=== PATIENT | female | born 1940 | race Caucasian/White ===

== ENCOUNTER 2019-02-27 13:50 | Observation (INO) ==
[2019-02-27] MEDS ORDERED: ASPIRIN PO ONE (14:03)
--- NOTE | 2019-02-27 14:32 | Diag Imaging Result Doc PS360 ---
CHEST-2 VIEWS - 02/27/2019 INDICATION: shortness of breath COMPARISON: None FINDINGS: The lungs are normally expanded and clear. Heart size and mediastinal contours are normal. No pneumothorax or pleural effusion. IMPRESSION: Negative exam. Electronically signed by Raz Gentile 02/27/2019 2:29 PM
--- NOTE | 2019-02-27 14:44 | EKG Report ---
Test Performed on : 02/27/2019 2:16:52 PM Test Reason : shortness of breath Blood Pressure : / mmHG Vent. Rate : 057 BPM Atrial Rate : 057 BPM P-R Int : 134 ms QRS Dur : 084 ms QT Int : 440 ms P-R-T Axes : 034 013 055 degrees QTc Int : 428 ms Sinus bradycardia. Otherwise normal ECG No previous ECGs available Unconfirmed Result
[2019-02-27 15:02] LABS: BASO# 0.03 X1000 (0.0-0.2); BASO% 0.4 % (0.0-0.8); EOS# 0.02 X1000 (0.0-0.7); EOS% 0.3 % (0.0-10.0); HEMATOCRIT 38.8 % (37.0-47.0); HEMOGLOBIN 13.5 g/dL (12.0-16.0); LYMPH# 1.61 X1000 (1.2-3.4); LYMPH% 22.4 % (20.5-51.1); MCH 30.7 PG (27-31); MCHC 34.8 g/dL (33-37); MCV 88.2 FL (81-99); MONO# 0.55 X1000 (0.11-0.59); MONO% 7.7 % (1.7-9.3); MPV 11.4 FL (7.4-10.4); NEUT# 4.97 X1000 (1.4-6.5); NEUT% 69.2 % (42.2-75.2); PLT 236 X1000 (130-400); RDW 12.5 % (11.5-14.5); WBC 7.18 X1000 (4.8-10.8)
[2019-02-27 15:08] LABS: INR 0.91
[2019-02-27 15:09] LABS: PTT 35.7 Seconds (22.3-41.8)
[2019-02-27 15:30] LABS: AGAP 13; ALB/GLOB RATIO 2.1; ALBUMIN 4.5 g/dL (3.5-5.0); ALKALINE PHOSPHATASE 117 U/L (32-104); BUN 14 mg/dL (8-22); CALCIUM 10.1 mg/dL (8.8-10.2); CHLORIDE 94 mmol/L (98-107); CK PROFILE 41 U/L (24-173); COSMO 266; CREATININE 0.8 mg/dL (0.5-0.9); ESTIMATED GFR > 60; GLUCOSE 110 mg/dL (70-104); GOT 16 U/L (10-30); GPT 15 U/L (10-36); POTASSIUM 3.6 mmol/L (3.5-5.1); SODIUM 132 mmol/L (136-145); TCO2 25 mmol/L (25-35); TOTAL BILIRUBIN 0.35 mg/dL (0.20-1.00); TOTAL PROTEIN 6.6 g/dL (6.3-8.3)
--- NOTE | 2019-02-27 17:40 | PROVIDER DOCUMENTATION ---
This chart was entered by Lia Rucker Scribe, acting as scribe for Blaire Blevins MD. HPI-Respiratory General - General Chief Complaint: Shortness of Breath Stated Complaint: CHEST TIGHTNESS Time Seen by Provider: 02/27/19 15:03 Source: patient Allergies/Adverse Reactions: Patient Allergies Allergy/AdvReac Type Severity Reaction Status Date / Time No Known Allergies Allergy Verified 02/27/19 15:49 Home Medications: Home Medication List Medication Instructions Recorded Confirmed Last Taken Type Alprazolam 1 mg PO QHS 02/27/19 02/27/19 02/26/19 History Aspirin 325 mg PO DAILY 02/27/19 02/27/19 02/27/19 History Bisoprolol Fumarate/Hctz [Ziac 1 tab PO BID 02/27/19 02/27/19 02/27/19 History 10-6.25 mg Tablet] - History of Present Illness-Resp Nature of Presenting Problem: Patient is a 78 year old female who presents with shortness of breath and chest tightness that started yesterday. States having lightheadedness. Denies history of CAD. Quality of Pain: reports: tightness Severity in ED: reports: mild Onset/Duration: reports: 24 hours ago Timing: reports: still present Cough Quality/Degree: reports: no cough Modifying Factors: improves with: lying down, rest. worse with: other (movement) Associated Symptoms: reports: chest pain/soreness (chest tightness), lightheadedness, shortness of breath Similar Symptoms Previously?: Yes Recently seen or treated by another doctor?: No Review of Systems - Adult - REVIEW OF SYSTEMS - ADULT Constitutional: reports: no symptoms reported. denies: chills, fever, fatique Eyes: reports: no symptoms reported Ears, Nose, Mouth & Throat: reports: no symptoms reported Cardiovascular: reports: no symptoms reported Respiratory: reports: see HPI, shortness of breath. denies: cough, wheezing Gastrointestinal: reports: no symptoms reported Genitourinary: reports: no symptoms reported Musculoskeletal: reports: no symptoms reported Integumentary: reports: no symptoms reported Neurological: reports: see HPI, other (lightheadedness). denies: dizziness/vertigo, headache/migraines, syncope Psychiatric: reports: no symptoms reported Endocrine: reports: no symptoms reported Hematologic/Lymphatic: reports: no symptoms reported Allergic/Immunologic: reports: no symptoms reported All Other Systems: Reviewed and Negative Past History - Adult - PAST MEDICAL HISTORY-ADULT Review of Records: reports: Old Records Reviewed, Nursing Assessment Review, Medications Reviewed, Social history reviewed & non-contributory. Major Childhood Illnesses: reports: denies history Cardiovascular: reports: HTN Respiratory: reports: denies history Gastrointestinal: reports: denies history Obstetrical/Gynecological: reports: denies history Genitourinary: reports: denies history Musculoskeletal: reports: denies history Neurological: reports: denies history Psychiatric: reports: anxiety Endocrine/Immune: reports: denies history Other Conditions: reports: denies history - PRIOR SURGERIES/PROCEDURES Surgical/Procedure History: reports: reviewed, not pertinent, BTL - IMMUNIZATION STATUS Childhood Immunizations: See Nurse Assessment Flu Vaccine: See Nurse Assessment - FAMILY HISTORY Family History: reviewed, not pertinent - SOCIAL HISTORY Smoking: cigarettes (former) Substance Use: denies Physical Exam-General - PHYSICAL EXAM-ADULT Initial Vital Signs Reviewed: Yes - CONSTITUTIONAL General Appearance: alert, no apparent distress. negative: lethargic, slow to respond - RESPIRATORY Respiratory: chest non-tender, lungs clear, normal breath sounds. negative: crackles, rhonchi, stridor - CARDIOVASCULAR Cardiovascular: normal peripheral pulses, regular rate, rhythm. negative: tachycardia, systolic murmur - GASTROINTESTINAL (ABDOMEN) Abdominal Exam: normal bowel sounds, non tender, soft. negative: guarding, rebound - MUSCULOSKELETAL Extremity: non-tender, normal inspection. negative: deformity, erythema - SKIN Integumentary: normal color, normal turgor, warm/dry. negative: cyanosis, erythema, jaundice, rash - NEUROLOGIC Neurologic: grossly normal. negative: aphasia, facial droop - PSYCHIATRIC Psych/Mental Status: normal mood/affect, oriented x 3. negative: anxious - HEART Score HEART Score: History: Moderately Suspicious HEART Score: ECG: Non-Specific Repolarization Disturbance/LBBB/PM HEART Score: Age: > or = 65 Years HEART Score: Risk Factors for Atherosclerotic Disease: 1 or 2 Risk Factors HEART Score: Troponin: < or = Normal Limit Total HEART Score:: 5 Progress - PLAN OF CARE/RESULTS Progress/Plan/Lab Results: Vital Signs - 8 hr 02/27/19 13:54 Temperature 97.9 F Pulse Rate 61 Respiratory Rate 18 Blood Pressure 196/79 O2 Sat by Pulse Oximetry 98 Laboratory Results - last 24 hr 02/27/19 02/27/19 02/27/19 14:11 14:11 14:11 WBC 7.18 RBC 4.40 Hgb 13.5 Hct 38.8 MCV 88.2 MCH 30.7 MCHC 34.8 RDW Std Deviation 12.5 Plt Count 236 MPV 11.4 H Immature Gran % (Auto) 0.0 Neut % (Auto) 69.2 Lymph % (Auto) 22.4 Hall % (Auto) 7.7 Eos % (Auto) 0.3 Baso % (Auto) 0.4 Immature Gran # (Auto) 0.00 Neut # (Auto) 4.97 Lymph # (Auto) 1.61 Hall # (Auto) 0.55 Eos # (Auto) 0.02 Baso # (Auto) 0.03 PT INR PTT (Actin FS) Sodium 132 L Potassium 3.6 Chloride 94 L Carbon Dioxide 25 Anion Gap 13 BUN 14 Creatinine 0.8 Estimated GFR/1.73 m2 > 60 BUN/Creatinine Ratio 18 Glucose 110 H Calculated Osmolality 266 Calcium 10.1 Total Bilirubin 0.35 AST 16 ALT 15 Alkaline Phosphatase 117 H Creatine Kinase 41 Troponin T Ukk-L-Ejnizuvnmws Pept 251 Total Protein 6.6 Albumin 4.5 Globulin 2.1 Albumin/Globulin Ratio 2.1 02/27/19 02/27/19 14:11 14:11 WBC RBC Hgb Hct MCV MCH MCHC RDW Std Deviation Plt Count MPV Immature Gran % (Auto) Neut % (Auto) Lymph % (Auto) Hall % (Auto) Eos % (Auto) Baso % (Auto) Immature Gran # (Auto) Neut # (Auto) Lymph # (Auto) Hall # (Auto) Eos # (Auto) Baso # (Auto) PT 13.0 INR 0.91 PTT (Actin FS) 35.7 Sodium Potassium Chloride Carbon Dioxide Anion Gap BUN Creatinine Estimated GFR/1.73 m2 BUN/Creatinine Ratio Glucose Calculated Osmolality Calcium Total Bilirubin AST ALT Alkaline Phosphatase Creatine Kinase Troponin T < 0.010 Glr-Q-Hbnnayjnakk Pept Total Protein Albumin Globulin Albumin/Globulin Ratio Orders Category Date Time Status Admit - [facility] Routine AdmDCTranf 02/27/19 16:50 Active Activity - Up Ad Jodee ORDERED Care 02/27/19 16:50 Active Cardiac Monitoring DIRECTED Care 02/27/19 14:03 Active Oxygen Therapy- ED Nursing DIRECTED Care 02/27/19 14:03 Active Saline Loc NOW Care 02/27/19 14:03 Active Vital Signs Order Q 8-HR .ASSESS Care 02/27/19 16:50 Active Z-Document. for Tele Applied ORDERED Care 02/27/19 16:51 Active CHEST-2 VIEWS [RAD] Stat Exams 02/27/19 14:03 Completed CBC WITH ELECTRONIC DIFF [HEME] Stat Lab 02/27/19 14:11 Completed CK PROFILE [SP CHEM] Stat Lab 02/27/19 14:11 Completed CK PROFILE [SP CHEM] Stat Lab 02/27/19 16:51 Uncollected COMPREHENSIVE METABOLIC PANEL [CHEM] Stat Lab 02/27/19 14:11 Completed PRO B-NATRIURETIC PEPTIDE Stat Lab 02/27/19 14:11 Completed PROTIME WITH INR [COAG] Stat Lab 02/27/19 14:11 Completed PTT [COAG] Stat Lab 02/27/19 14:11 Completed TROPONIN T Stat Lab 02/27/19 14:11 Completed TROPONIN T Stat Lab 02/27/19 16:51 Uncollected Aspirin Med 02/27/19 14:03 Discontinued 325 mg PO NOW ONE CP/SOB/Palp >45 yrs of Age Stat Oth 02/27/19 14:03 Ordered Telemetry [OM.EQ] Routine Oth 02/27/19 16:50 Active EKG [EKG] Stat Ther 02/27/19 14:16 Draft Transfer/Admit Order [TRANSFER] Routine Transfer 02/27/19 16:52 Ordered Result Diagrams: 02/27/19 14:11 02/27/19 14:11 - EKG 1 Time of EKG reading by physician:: 14:16 EKG Read and Signed by:: Ignacio Sosa EKG Interpretation (*Must complete 3 of following elements*): Abnormal Rate: 57 Rhythm: sinus bradycardia [place]: normal ID Interval: normal Comments: otherwise normal ECG - XRAY 1 XRAY Study: Chest Impression: See EMR Report ( CHEST-2 VIEWS - 02/27/2019 INDICATION: shortness of breath COMPARISON: None FINDINGS: The lungs are normally expanded and clear. Heart size and mediastinal contours are normal. No pneumothorax or pleural effusion. IMPRESSION: Negative exam. Electronically signed by Raz Gentile 02/27/2019 2:29 PM 02/27/19 1429 Interpreting Physician: Raz Gentile MD Dictated Date/Time: 02/27/19 1429 cc: Ignacio Sosa; Boni Lindsay MD) - CONSULTS/PCP/HOSPITALIST Notification #1 *Consult/PCP/Hospitalist*: Dr. Guerrero Time Discussed: 17:39 Consult Disposition: Admit Departure - Departure Date of Disposition Decision: 02/27/19 Time of Disposition Decision: 17:40 DIAGNOSIS: ACS (acute coronary syndrome), Sinus bradycardia Disposition: ADMITTED INPATIENT 09 Certified Medical Emergency: Emergent Condition: Stable Referrals and Follow-Ups: Boni Lindsay MD [Primary Care Provider] - - Critical Care Note This patient required my direct & personal management of CC.: No Attestation - Physician/ JESSICA Attestation The physician spent face to face time with patient:: Yes Advanced Practice Provider documentation review:: Supervising physician onsite and consulted in the evaluation and care of this patient. The physician did have a face to face encounter with the patient. This chart was documented by the indicated scribe, (Lia Rucker Scribe) and accurately reflects the services I performed and decisions made by me, Blaire Blevins MD, as attested by the provider's signature.
[2019-02-27] MEDS ORDERED: KLOR-CON PO ONE (18:53)
[2019-02-27] MEDS ORDERED: XANAX PO SCH (21:00)
--- NOTE | 2019-02-27 21:09 | HISTORY AND PHYSICAL ---
CHIEF COMPLAINT: Chest pain. HISTORY OF PRESENT ILLNESS: Ms. Manriquez is a 78-year-old white female, patient of Dr. Mayer, complaining of chest pain. Patient described pain as a tightness with shortness of breath that started yesterday. Patient had more problem with exertion. With rest, she was feeling better. Today, she went to Urgent Care in [place]. Patient was given aspirin. They did EKG and patient was sent to emergency room. Patient does have hypertension. Patient is on Ziac 10 one tablet twice a day. Patient claims her exercise tolerance seems to be decreasing. No radiation of chest tightness to the arm. She did have shortness of breath. No associated sweating. Patient does not know her lipid result, not aware of being diabetic. Patient is menopausal. No leg swelling. Patient evaluated in the ER. Because of her character of the chest pain, risk factors, we decided to admit patient for observation. Patient denied any abdominal pain, nausea, vomiting. No heartburn, no dysphagia or odynophagia. No unusual cough, expectoration, or hemoptysis. Patient was getting short of breath with exertion. No leg swelling. No arthritic pain in the joint. No joint swelling or redness. Denied being depressed. No runny nose, stuffy nose, sinus drainage. Denied any headache. No heat or cold intolerance. At times, polyuria, polydipsia. No further history available at this time. ALLERGIES: No known drug allergy. MEDICATIONS: 1. Ziac 10 mg p.o. b.i.d. 2. Xanax 1 mg p.o. at bedtime for sleep. FAMILY HISTORY: Father at 77; had melanoma. Father did have history of [place]. One sister with hypothyroidism and fibromyalgia. Another sister with Sjogren syndrome and rib fracture. Patient had a sister with ulcerative colitis and surgeries, who at age 81. REVIEW OF SYSTEMS: As per HPI, otherwise unobtainable. Patient denied being depressed. No major weight loss or weight gain. No heat or cold intolerance. No focal numbness, tingling, weakness. PHYSICAL EXAMINATION: GENERAL: Elderly white female patient in no acute distress. VITAL SIGNS: Blood pressure 196/79, pulse 61, respiration 18, temperature 97.9 degrees. HEAD: Atraumatic, normocephalic. EYES: [place] conjunctivae. Anicteric sclerae. Extraocular muscle movements normal. Fundus cannot be penetrated. ENT: Good oral hygiene. No tonsillopharyngeal congestion or exudate. Ears and nose benign. NECK: Supple. No JVD, thyromegaly or lymphadenopathy. CHEST: Bilateral good air entry present. No rales or rhonchi. CARDIOVASCULAR: S1 and S2 heard. No gallop or thrill. ABDOMEN: Soft. No distention. Bowel sounds present. No organomegaly or mass. EXTREMITIES: No cyanosis, clubbing. No acute DVT. Peripheral pulsation intact. DAIRY EQUIPMENT SPECIALIST: Alert, awake. Able to move all 4 limbs. LABORATORY DATA: WBC count 7.18, hemoglobin 13.5, hematocrit 38.8, platelet count 236,000. PT/INR 0.91, PTT 35.7, sodium 132, potassium 3.6. Blood sugar 110. CONSIDERATIONS: 1. Chest pain, which she described as a tightness. Patient does have risk factors for coronary artery disease. 2. Hypertension, bradycardia, mild hyponatremia, insomnia. Patient electrocardiogram noted. PLAN: 1. Admit patient for observation. 2. Serial EKGs, cardiac isoenzymes. 3. Echocardiogram. 4. Check appropriate labs. 5. Risk factor stratification. 6. After reviewing labs, will make necessary recommendations. 7. Overall plan discussed with the patient, and she is in agreement. cc: Kendrick Hagen MD
[2019-02-27] MEDS: LOVENOX SUBQ SCH (21:34)
[2019-02-27] MEDS: PRINIVIL PO SCH (21:37)
[2019-02-28 07:33] LABS: BASO# 0.02 X1000 (0.0-0.2); BASO% 0.4 % (0.0-0.8); EOS# 0.06 X1000 (0.0-0.7); EOS% 1.3 % (0.0-10.0); HEMATOCRIT 37.2 % (37.0-47.0); HEMOGLOBIN 12.7 g/dL (12.0-16.0); LYMPH# 1.76 X1000 (1.2-3.4); LYMPH% 37.5 % (20.5-51.1); MCH 30.6 PG (27-31); MCHC 34.1 g/dL (33-37); MCV 89.6 FL (81-99); MONO# 0.55 X1000 (0.11-0.59); MONO% 11.7 % (1.7-9.3); MPV 11.1 FL (7.4-10.4); NEUT% 49.1 % (42.2-75.2); PLT 210 X1000 (130-400); RBC 4.15 XMIL (4.2-5.4); RDW 12.6 % (11.5-14.5); WBC 4.69 X1000 (4.8-10.8)
[2019-02-28 07:52] LABS: AGAP 9; ALB/GLOB RATIO 1.9; ALKALINE PHOSPHATASE 99 U/L (32-104); BUN 11 mg/dL (8-22); CALCIUM 8.7 mg/dL (8.8-10.2); CHLORIDE 100 mmol/L (98-107); CHOLESTEROL 226 mg/dL (0-200); COSMO 271; CREATININE 0.7 mg/dL (0.5-0.9); ESTIMATED GFR > 60; GLUCOSE 95 mg/dL (70-104); GOT 17 U/L (10-30); GPT 13 U/L (10-36); HDL 47 mg/dL (45-65); LDL 157 mg/dL; MAGNESIUM 2.2 mg/dL (1.5-2.7); SODIUM 136 mmol/L (136-145); TCO2 27 mmol/L (25-35); TOTAL BILIRUBIN 0.44 mg/dL (0.20-1.00); TOTAL PROTEIN 6.1 g/dL (6.3-8.3); TRIGLYCERIDES 108 mg/dL (35-135); VLDL 22 mg/dL
[2019-02-28 08:00] LABS: HEMOGLOBIN A1C 4.9 % (4.8-6.0)
[2019-02-28 08:18] LABS: FREE T4 1.2 ng/dL (0.93-1.70); TSH 3.43 uIUmL (0.27-4.20)
[2019-02-28] MEDS ORDERED: ASPIRIN PO SCH (09:00)
[2019-02-28] MEDS: LOVENOX SUBQ SCH (09:26)
[2019-02-28] MEDS: PRINIVIL PO SCH (09:27)
[2019-02-28] MEDS: ZIAC 10/6.25 MG PO SCH ×2 (09:29→09:30)
[2019-02-28 11:35] VITALS: BP 147/54
--- NOTE | 2019-02-28 15:15 | ECHO REPORT ---
ORDER DATE: 02/27/2019 ECHOCARDIOGRAPHIC MEASUREMENTS: 1. Interventricular septum 0.9. 2. Left ventricular posterior wall 0.9. 3. Diastolic diameter 4.3. 4. Left atrium 3.7. 5. Aorta 3.8. SUMMARY: 1. Pulmonic valve was normal. There is trace pulmonary regurgitation. 2. Aortic valve leaflets are trileaflet. 3. Mitral valve was normal. 4. Tricuspid valve was normal. 5. There is mild mitral regurgitation. 6. Mild tricuspid regurgitation. 7. Peak velocity across the tricuspid valve was 2.4 m/sec. 8. Pulmonary artery systolic pressure of 33 mmHg. 9. Peak velocity across the aortic valve less than 2 m/sec. 10. By Doppler studies there is no aortic stenosis or regurgitation. 11. Normal left ventricular cavity size. 12. Estimated ejection fraction of 60 to 65 percent. 13. There is no pericardial effusion or obvious intracardiac mass or thrombus seen. cc: MD Kendrick Marcum MD
--- NOTE | 2019-02-28 19:07 | DISCHARGE SUMMARY ---
ADMISSION DATE: 02/27/2019 DISCHARGE DATE: 02/28/2019 FINAL DISCHARGE DIAGNOSIS: 1. Chest pain. 2. Hypertension. 3. Hyperlipidemia. Ms Manriquez 78-year-old white female patient admitted with chest tightness more so with exertion. Since admission patient is doing better. She denied any fever, chills. No palpitation. No nausea or vomiting. Her cardiac isoenzymes were negative. Clinically patient is doing better eager to go home. OBJECTIVE: Vital signs: Noted. Neck: Supple. No JVD. Lungs: Bilateral good air entry present. CVS: S1 and S2 heard. Abdomen: Soft, nontender. Bowel sounds present. NET LEAD ARCHITECT: Alert, awake, able to move all 4 limbs. Patient's EKG noted which reveals sinus bradycardia. No acute ST-T wave changes. Other labs revealed hyperlipidemia. PLAN: I am going to discharge patient home on Ziac 10 in the morning, lisinopril 10 in the evening, 1 aspirin a day. Advised patient to see Dr. Lindsay on Saturday. Encourage patient she will need a stress test for further evaluation. In case of more distress call us back or go to emergency room. Overall discharge condition satisfactory. The patient understood and agreed. Her chest x-ray was benign. Echocardiogram is pending. cc: Kendrick Hagen MD
--- NOTE | 2019-03-02 07:37 | EKG Report ---
Test Performed on : 02/28/2019 06:20:29 AM Test Reason : CP Blood Pressure : / mmHG Vent. Rate : 051 BPM Atrial Rate : 051 BPM P-R Int : 140 ms QRS Dur : 080 ms QT Int : 492 ms P-R-T Axes : 041 020 054 degrees QTc Int : 453 ms Sinus bradycardia. Otherwise normal ECG When compared with ECG of 27-FEB-2019 15:08, (Unconfirmed) No significant change was found Confirmed by Christina GENTILE, Lincoln Pandya ([id number]) on 03/02/2019 9:30:16 AM
--- NOTE | 2019-03-02 10:14 | EKG Report ---
Test Performed on : 02/27/2019 3:08:43 PM Test Reason : ED. No order in [place] Blood Pressure : / mmHG Vent. Rate : 056 BPM Atrial Rate : 056 BPM P-R Int : 140 ms QRS Dur : 080 ms QT Int : 456 ms P-R-T Axes : 049 018 040 degrees QTc Int : 440 ms Sinus bradycardia. Otherwise normal ECG When compared with ECG of 27-FEB-2019 14:16, (Unconfirmed) No significant change was found Unconfirmed Result
== END 2019-02-28 12:37 | disposition home or self-care (01) ==
LOC: ED 13:50 → INTOOBSV 13:51 → 3N 13:51
PROVIDERS: ADMIT Internal Medicine; ATTEND Internal Medicine